=== PATIENT | male | born 1940 | race African-American/Black ===

== ENCOUNTER 2018-12-23 22:40 | Emergency (ER) | payer OTHER ==
[2018-12-23] MEDS: ONDANSETRON (ODT) 4 MG TAB ODT (22:58)
[2018-12-23] MEDS: HYDROCODONE/APAP (5/325) TAB PO (22:59)
== END 2018-12-24 01:30 | disposition home or self-care (01) ==
LOC: E/R 22:40
DX: S22.32XA Fracture of one rib, left side, initial encounter for closed fracture (principal); R40.2142 Coma scale, eyes open, spontaneous, at arrival to emergency department; R40.2362 Coma scale, best motor response, obeys commands, at arrival to emergency department; R40.2252 Coma scale, best verbal response, oriented, at arrival to emergency department; R94.02 Abnormal brain scan; W51.XXXA Accidental striking against or bumped into by another person, initial encounter; Y92.009 Unspecified place in unspecified non-institutional (private) residence as the place of occurrence of the external cause
CPT/HCPCS: 70450; 71045; 73030; 93005; 99285-25